=== PATIENT | female | born 1975 | race Caucasian/White ===

== ENCOUNTER → 2016-12-05 | Outpatient (CLI) | payer MEDICAID | LOC: RAD 07:13 | PROVIDERS: ATTEND Family Medicine | DX: M54.12 Radiculopathy, cervical region (principal) | CPT/HCPCS: 72141; 72146 ==

== ENCOUNTER 2018-02-07 19:42 | Emergency (ER) | payer MEDICAID ==
--- NOTE | 2018-02-07 20:32 | ER Document Report ---
ED Medical Screen (RME) - General Chief Complaint: Leg Pain Stated Complaint: RIGHT LEG PAIN Time Seen by Provider: 02/07/18 20:28 Notes: Patient presents with 4 days of increasing numbness tingling warmth she states of her right lower extremity. She states that she has had venous removal in the past but no history of blood clots. Her primary concern for coming to the emergency department is concern for blood clots in her leg. She denies any chest pain or shortness of breath at this time. She also states that she has had lower back problems and this could be contributing to the pain in her leg. She denies any dysuria I have greeted and performed a rapid initial assessment of this patient. A comprehensive ED assessment and evaluation of the patient, analysis of test results and completion of the medical decision making process will be conducted by additional ED providers. PHYSICAL EXAMINATION: GENERAL: Well-appearing, well-nourished and in no acute distress. HEAD: Atraumatic, normocephalic. EYES: Pupils equal round extraocular movements intact, conjunctiva are normal. ENT: Nares patent NECK: Normal range of motion LUNGS: No respiratory distress Musculoskeletal: Normal range of motion, limited exam due to blue jeans NEUROLOGICAL: Normal speech, normal gait. PSYCH: Normal mood, normal affect. SKIN: Warm, Dry, normal turgor, no rashes or lesions noted. TRAVEL OUTSIDE OF THE [place] IN LAST 30 DAYS: No - Related Data Allergies/Adverse Reactions: amoxicillin Allergy (Mild, Verified 06/21/16 22:57) Urticaria Past Medical History - Social History Chew tobacco use (# tins/day): No Frequency of alcohol use: Occasional Drug Abuse: None Renal/ Medical History: Denies: Hx Peritoneal Dialysis Physical Exam - Vital signs Vitals: Temp Pulse Resp BP Pulse Ox 98.2 F 96 16 124/66 98 02/07/18 20:02 02/07/18 20:02 02/07/18 20:02 02/07/18 20:02 02/07/18 20:02 Course - Vital Signs Vital signs: Temp Pulse Resp BP Pulse Ox 98.2 F 96 16 124/66 98 02/07/18 20:02 02/07/18 20:02 02/07/18 20:02 02/07/18 20:02 02/07/18 20:02 Doctor's Discharge - Discharge Referrals: JULISSA VASQUEZ, [Primary Care Provider] - Follow up as needed
--- NOTE | 2018-02-07 22:38 | ER Document Report ---
ED Extremity Problem, Lower - General Chief Complaint: Leg Pain Stated Complaint: RIGHT LEG PAIN Time Seen by Provider: 02/07/18 20:28 Mode of Arrival: Ambulatory Information source: Patient Notes: Patient presents complaining of right lower extremity pain for the past 4 days. Patient states that whenever she stands up she notices that her right lower leg is swollen. Patient complains of tingling and increased warmth sensation to posterior aspect of her right calf. Patient to right foot. Patient states leg feels heavy and tight. Patient does report previous vascular surgery years ago due to enlarged veins to the posterior calf area. Patient denies any chest pain or dyspnea. Patient denies any recent bed rest, immobilization or history of DVT in the past. TRAVEL OUTSIDE OF THE [place] IN LAST 30 DAYS: No - HPI Patient complains to provider of: Pain, Swelling Location: Leg Occurred: Other - four days Onset/Duration: Persistent Quality of pain: Achy Pain Level: 3 Context: denies: Recent immobilization, Recent surgery, Recent travel Recent injury: No Associated symptoms: Painful ambulation. denies: Chest pain, Dizzy, Fever, Hurts to breath Exacerbated by: Walking Relieved by: Nothing - Related Data Allergies/Adverse Reactions: amoxicillin Allergy (Mild, Verified 06/21/16 22:57) Urticaria Past Medical History - General Information source: Patient - Social History Smoking Status: Current Every Day Smoker Chew tobacco use (# tins/day): No Smoking Education Provided: Yes Frequency of alcohol use: Occasional Drug Abuse: None Occupation: clerical Lives with: Family Family History: Reviewed & Not Pertinent Patient has suicidal ideation: No Patient has homicidal ideation: No - Past Medical History Cardiac Medical History: Reports: Other - anemia Renal/ Medical History: Denies: Hx Peritoneal Dialysis Past Surgical History: Reports: Hx Hysterectomy, Hx Vascular Surgery - r leg vascular surgery to remove vein Review of Systems - Review of Systems Constitutional: No symptoms reported. denies: Fever EENT: No symptoms reported Cardiovascular: No symptoms reported. denies: Chest pain, Dyspnea, Dizziness Respiratory: No symptoms reported. denies: Cough, Short of breath Gastrointestinal: No symptoms reported. denies: Vomiting Genitourinary: No symptoms reported Female Genitourinary: No symptoms reported Musculoskeletal: Muscle pain - r calf pain. denies: Back pain Skin: No symptoms reported Hematologic/Lymphatic: No symptoms reported Neurological/Psychological: No symptoms reported Physical Exam - Vital signs Vitals: Temp Pulse Resp BP Pulse Ox 98.2 F 96 16 124/66 98 02/07/18 20:02 02/07/18 20:02 02/07/18 20:02 02/07/18 20:02 02/07/18 20:02 - General General appearance: Appears well, Alert In distress: None - HEENT Head: Normocephalic Eyes: Normal Nasal: Normal Mouth/Lips: Normal Mucous membranes: Normal Neck: Normal, Supple. No: Lymphadenopathy - Respiratory Respiratory status: No respiratory distress Chest status: Nontender Breath sounds: Normal. No: Rales, Rhonchi, Stridor, Wheezing Chest palpation: Normal - Cardiovascular Rhythm: Regular Heart sounds: S1 appreciated, S2 appreciated Murmur: No Pulses: Normal: Dorsalis pedis - Back Back: Normal, Nontender - Extremities General upper extremity: Normal inspection, Normal strength General lower extremity: Normal inspection, Tender - Right calf tenderness, Edema - 1+ edema to right lower extremity, Normal color, Normal ROM, Normal strength, Normal weight bearing Calf: Tender - Right calf, Other - Scars to right calf from previous vein surgery. No: Abrasion, Deformity, Unable to bear weight - Neurological Neuro grossly intact: Yes Cognition: Normal [place] Coma Scale Eye Opening: Spontaneous [place] Coma Scale Verbal: Oriented [place] Coma Scale Motor: Obeys Commands [place] Coma Scale Total: 15 - Psychological Associated symptoms: Normal affect, Normal mood - Skin Skin Temperature: Warm Skin Moisture: Dry Skin Color: Normal Course - Re-evaluation Re-evalutation: 02/07/18 22:33 Preliminary Doppler study with venous congestion, no DVT. Offered patient crutches to help with leg discomfort in gait. Patient declines at this time. Patient does have an appointment with her primary doctor set up. Pt is without any chest discomfort or dyspnea. Patient with good pulses to right lower extremity. - Vital Signs Vital signs: Temp Pulse Resp BP Pulse Ox 98.1 F 64 20 102/54 L 98 02/07/18 23:05 02/07/18 23:05 02/07/18 23:05 02/07/18 23:05 02/07/18 23:05 Discharge - Discharge Clinical Impression: Pain of right lower leg Condition: Stable Disposition: HOME, SELF-CARE Instructions: Leg Pain Nonspecific ([facility]) Additional Instructions: Return immediately for any new or worsening symptoms Followup with your primary care provider, call tomorrow to make a followup appointment Follow-up with a vascular surgeon for further evaluation Prescriptions: Naproxen [Naprosyn 250 Nmg Tablet] 1 tab PO BID #14 tablet Forms: Smoking Cessation Education Referrals: JULISSA VASQUEZ DO [Primary Care Provider] - Follow up as needed TALIB REIS MD [ACTIVE STAFF] - Follow up as needed
[2018-02-07 23:19] VITALS: BP 102/54
--- NOTE | 2018-02-08 09:22 | XCELERA REPORT ---
[address] [address] Lower Extremity Venous Evaluation Name: JD FERGUSON Age: 42 yrs Gender: Female : 1975 Patient Status: Emergency Patient Location: ER Study Date: 02/07/2018 09:44 PM Procedure: Color flow and duplex imaging of the veins of the right lower extremity as well as the left Common Femoral vein. Reason For Study: pain rt leg Ordering Physician: ALLAN ESTRADA Performed By: Wandy Rangel Right Sided Venous Evaluation Venous reflux noted in the Popliteal vein and in the Short Saphenous vein and possible in a shove up. Otherwise normal vessel filling wall to wall, compression and augmentation as well as Colour flow down to the infrageniculate veins. Left Sided Venous Evaluation The left common femoral vein is fully compressible. Spontaneous and phasic flow is present in the left common femoral vein. Interpretation Summary No duplex evidence of DVT or obstruction in the right lower extremity nor in the left Common Femoral vein. Deep and superficial reflux noted in the right lower extremity. A dedicated study for reflux may be useful. : ALLAN ESTRADA > Bud Ramachandran
== END 2018-02-07 23:19 | disposition home or self-care (01) ==
LOC: ER 19:42
DX: M79.604 Pain in right leg (principal); M79.89 Other specified soft tissue disorders; R20.0 Anesthesia of skin; F17.200 Nicotine dependence, unspecified, uncomplicated
CPT/HCPCS: 93971; 99283

== ENCOUNTER → 2018-03-26 | Outpatient (CLI) | payer MEDICAID ==
--- NOTE | 2018-03-28 09:31 | XCELERA REPORT ---
[address] [address] Lower Extremity Arterial Evaluation Name: JD FERGUSON Age: 42 yrs Gender: Female : 1975 Patient Status: Outpatient Patient Location: Study Date: 03/26/2018 11:12 AM Procedure: A color flow and duplex scan of the lower extremity arteries was performed bilaterally with velocity and waveform anaylsis. Ankle brachial indicies performed. Reason For Study: PVD Ordering Physician: TALIB REIS Performed By: Josh Marcos Measurements and Calculations Right Left CLAIM INVESTIGATOR PSV 188.6 187.6 cm/sec Prox PFA PSV -84.9 -96.2 cm/sec Prox SFA PSV -141.4 -130.1 cm/sec Mid SFA PSV -127.3 -115.2 cm/sec Dist SFA PSV -103.7 -107.5 cm/sec Prox Pop A PSV 62.1 57.0 cm/sec Dist BRYON PSV 31.7 77.7 cm/sec Dist ANALYSIS MGR PSV 94.3 90.4 cm/sec Geo Pedis PSV -67.6 -77.7 cm/sec Right Side Arterial Evaluation Normal velocity and triphasic waveforms noted from the Common Femoral artery to the Posterior Tibial . Biphasic with mild diminution in velocity at the Anterior Tibial. 0-19% stenosis at the Anterior Tibial artery. Ankle Brachial index is 1.15. Left Side Arterial Evaluation Normal velocity and triphasic waveforms noted from the Common Femoral artery to the infrageniculate vessels. Biphasic Dorsalis Pedis. 0-19% stenosis at the Dorsalis Pedis. Ankle Brachial index is 1.22. Interpretation Summary Mild hemodynamically significant lesions in the bilateral lower extremities, on duplex imaging, at rest. : TALIB REIS > Talib Reis
== END ==
LOC: SP 10:41
PROVIDERS: ATTEND Surgery
DX: I73.9 Peripheral vascular disease, unspecified (principal)
CPT/HCPCS: 93922; 93925

== ENCOUNTER 2018-09-12 17:53 | Emergency (ER) | payer MEDICAID ==
[2018-09-12] MEDS ORDERED: MAG HYDROX/AL HYDROX/SIMETH SUSP 30 ML UDCUP PO ONE (19:38)
[2018-09-12] MEDS ORDERED: LIDOCAINE 2% VISCOUS SOLN 20 ML UDCUP PO ONE (19:38)
--- NOTE | 2018-09-12 19:43 | RADIOLOGY REPORT (SQ) ---
EXAM DESCRIPTION: CT SOFT TISSUE NECK WITH COMPLETED DATE/TIME: 09/12/2018 7:35 pm REASON FOR STUDY: DYSPHAGIA COMPARISON: None. TECHNIQUE: Post IV contrasted scanning from skull base through lung apices with review of bone, soft tissue and lung windows. Reconstructed coronal and sagittal MPR images reviewed. All images stored on PACS. All CT scanners at this facility use dose modulation, iterative reconstruction, and/or weight based d osing when appropriate to reduce radiation dose to as low as reasonably achievable (ALARA). [facility]: Dose Right [facility]: CareDose [facility]: Dose Right [facility]: Teradose 4D [facility]: [place] CONTRAST TYPE AND DOSE: contrast/concentration: Isovue 350.00 mg/ml; Total Contrast Delivered: 75.0 ml; Total Saline Delivered: 55.0 ml RENAL FUNCTION: None required. The patient is less than 50 years old. RADIATION DOSE: CT Rad equipment meets quality standard of care and radiation dose reduction techniq ues were employed. CTDIvol: 10.2 mGy. DLP: 381 mGy-cm. . LIMITATIONS: None. FINDINGS: SKULL BASE: Intact. MAJOR SALIVARY GLANDS: No solid or cystic masses. No inflammatory changes. LYMPHADENOPATHY: No adenopathy. MUCOSAL MASSES OR ASYMMETRY: No mucosal masses or asymmetry. LARYNX/CORDS: No abnormal findings. VASCULAR STRUCTURES: The major vessels are patent. LUNG APICES: Clear. BONES: Intact. THYROID: Normal size. No masses. PARANASAL SINUSES: Clear. OTHER: No other significant finding. IMPRESSION: NO SIGNIFICANT FINDING IN THE SOFT TISSUES OF THE NECK. TECHNICAL DOCUMENTATION: JOB ID: [id number] Quality ID # [id number]: Final reports with documentation of one or more dose reduction techniques (e.g., Au tomated exposure control, adjustment of the mA and/or kV according to patient size, use of iterative reconstruction technique) 2010 [employer]- All Rights Reserved Reading location - IP/workstation name: [email or web address]
--- NOTE | 2018-09-12 20:13 | ER Document Report ---
ED General - General Chief Complaint: Difficulty Swallowing Stated Complaint: SWALLOWING ISSUE Time Seen by Provider: 09/12/18 18:10 Notes: Patient is a 42-year-old female current everyday smoker, no chronic medical problems who presents with 9-10 days of odynophagia and dysphasia. The patient states that each time she attempts to swallow she feels like something is stuck in her throat but she is able to pass both fluids and food. She describes it as a heaviness or achiness in her throat only present with attempts at swallowing. She states that her symptoms started relatively abruptly approximately 9-10 days ago. She states initially she thought she had swallowed part of her denture. She has not tried anything to improve her symptoms. She denies any difficulty breathing, vomiting or fever. She has not seen her general doctor regarding today's concerns. Nothing is new or different about her symptoms tonight that prompted a visit to the emergency department. TRAVEL OUTSIDE OF THE [place] IN LAST 30 DAYS: No - Related Data Allergies/Adverse Reactions: amoxicillin Allergy (Mild, Verified 06/21/16 22:57) Urticaria Past Medical History - General Information source: Patient - Social History Smoking Status: Current Every Day Smoker Cigarette use (# per day): Yes - 1 pack/day Chew tobacco use (# tins/day): No Smoking Education Provided: Yes - Smoking cessation counseling was provided for 4 minutes at the bedside Frequency of alcohol use: Social Drug Abuse: None Lives with: Family Family History: Reviewed & Not Pertinent Patient has suicidal ideation: No Patient has homicidal ideation: No Renal/ Medical History: Denies: Hx Peritoneal Dialysis Past Surgical History: Reports: Hx Appendectomy, Hx Hysterectomy, Hx Tonsillectomy, Hx Vascular Surgery - r leg vascular surgery to remove vein Review of Systems - Review of Systems Notes: Constitutional: Negative for fever. HENT: Negative for sore throat. Eyes: Negative for visual changes. Cardiovascular: Negative for chest pain. Respiratory: Negative for shortness of breath. Gastrointestinal: Positive for dysphasia and odynophagia Genitourinary: Negative for dysuria. Musculoskeletal: Negative for back pain. Skin: Negative for rash. Neurological: Negative for headaches, weakness or numbness. 10 point ROS negative except as marked above and in HPI. Physical Exam - Vital signs Vitals: Temp Pulse Resp BP Pulse Ox 99.1 F 83 14 147/77 H 97 09/12/18 18:04 09/12/18 18:04 09/12/18 18:04 09/12/18 18:04 09/12/18 18:04 Interpretation: Hypertensive Notes: PHYSICAL EXAMINATION: GENERAL: Well-appearing, well-nourished and in no acute distress. HEAD: Atraumatic, normocephalic. EYES: Pupils equal round and reactive to light, extraocular movements intact, sclera anicteric, conjunctiva are normal. ENT: nares patent, oropharynx clear without exudates. Moist mucous membranes. NECK: Normal range of motion, supple without lymphadenopathy LUNGS: Breath sounds clear to auscultation bilaterally and equal. No wheezes rales or rhonchi. HEART: Regular rate and rhythm without murmurs ABDOMEN: Soft, nontender, normoactive bowel sounds. No guarding, no rebound. No masses appreciated. EXTREMITIES: Normal range of motion, no pitting or edema. No cyanosis. NEUROLOGICAL: No focal neurological deficits. Moves all extremities spontaneously and on command. PSYCH: Normal mood, normal affect. SKIN: Warm, Dry, normal turgor, no rashes or lesions noted. Course - Re-evaluation Re-evalutation: 09/12/18 20:06 Patient presents with odynophagia and dysphasia that has been ongoing for the past 9-10 days. States that the symptoms were relatively abrupt onset. She has no stridor, no wheezing, difficulty actually swallowing or passing fluids or foods. CT of the neck with contrast was obtained in triage for uncertain reasons. This is reviewed, noted to be normal. There is no evidence of retained foreign body. The patient is able to swallow without difficulty at the bedside. I suspect likely an esophagitis versus a lower probability of a small retained foreign body as the patient is able to pass food and fluids without any difficulty. No evidence of tracheal obstruction. I have advised the patient to keep a soft diet, begin famotidine, and follow-up with her primary care doctor for consideration of an outpatient referral for endoscopy. At this time will discharge with return precautions and follow-up recommendations. Verbal discharge instructions given a the bedside and opportunity for questions given. Medication warnings reviewed. Patient is in agreement with this plan and has verbalized understanding of return precautions and the need for primary care follow-up in the next 24-72 hours. - Vital Signs Vital signs: Temp Pulse Resp BP Pulse Ox 99.1 F 83 14 147/77 H 97 09/12/18 18:04 09/12/18 18:04 09/12/18 18:04 09/12/18 18:04 09/12/18 18:04 - Diagnostic Test Radiology reviewed: Image reviewed, Reports reviewed Radiology results interpreted by me: 09/12/18 20:07 CT neck: No evidence of a retained foreign body in the esophagus Discharge - Discharge Clinical Impression: Foreign body sensation in throat, Odynophagia, Tobacco abuse Condition: Good Disposition: HOME, SELF-CARE Additional Instructions: Please begin taking famotidine 40 mg twice daily. This can be purchased directly [id number] but a prescription is also included in your paperwork if you need it. You may wish to crush the pill and place it in pudding or yogurt to help you swallow without difficulty. Your CT scan of the neck is normal today. You likely have inflammation of your esophagus causing you to have the sensation that you are currently experiencing. However, if your symptoms persist despite taking the medication and keeping a soft diet consisting of items such as pudding, yogurt, cottage cheese, mashed potatoes, etc. I would advise that you follow-up with your general doctor for consideration of an endoscopy. Please return to the emergency department if you become unable to swallow, have difficulty breathing, persistent vomiting, develop a fever of greater than 101 F, or have any other symptoms that are worrisome to you. Prescriptions: Famotidine 40 mg PO BID #60 tablet Forms: Smoking Cessation Education Referrals: JULISSA VASQUEZ DO [Primary Care Provider] - Follow up as needed
[2018-09-12 20:20] VITALS: BP 130/78
== END 2018-09-12 20:20 | disposition home or self-care (01) ==
LOC: ER 17:53
DX: R13.10 Dysphagia, unspecified (principal); R09.89 Other specified symptoms and signs involving the circulatory and respiratory systems; F17.210 Nicotine dependence, cigarettes, uncomplicated; Z71.6 Tobacco abuse counseling; Z88.0 Allergy status to penicillin
CPT/HCPCS: 99406; 99284; 70491; J3490 ×2

== ENCOUNTER → 2019-06-10 | Outpatient (CLI) | payer MEDICAID ==
--- NOTE | 2019-06-10 13:52 | RADIOLOGY REPORT (SQ) ---
EXAM DESCRIPTION: T SPINE AP/LAT COMPLETED DATE/TIME: 06/10/2019 12:16 pm REASON FOR STUDY: PAIN IN THORACIC SPINE M54.6 PAIN IN THORACIC SPINE M54.2 CERVICALGIA COMPARISON: None. NUMBER OF VIEWS: Two views. TECHNIQUE: AP and lateral radiographic images acquired of the thoracic spine. LIMITATIONS: None. FINDINGS: MINERALIZATION: Normal. ALIGNMENT: Normal. No scoliosis. VERTEBRAE: No fracture or bone lesion. Maintained height, normal segmentation. DISCS: No significant loss of height or significant narrowing. No large osteophytes. HARDWARE: None in the spine. MEDIASTINUM AND SOFT TISSUES: Normal heart size and aortic contour. No soft tissue abnormality. VISUALIZED LUNG GOLDBERG: Clear. OTHER: No other significant finding. IMPRESSION: NO SIGNIFICANT RADIOGRAPHIC FINDING IN THE THORACIC SPINE. TECHNICAL DOCUMENTATION: JOB ID: [id number] [employer]- All Rights Reserved Reading location - IP/workstation name: [email or web address]
--- NOTE | 2019-06-10 13:53 | RADIOLOGY REPORT (SQ) ---
EXAM DESCRIPTION: C SP 3 VWS OR LESS COMPLETED DATE/TIME: 06/10/2019 12:16 pm REASON FOR STUDY: CERVICALGIA M54.6 PAIN IN THORACIC SPINE M54.2 CERVICALGIA COMPARISON: None. NUMBER OF VIEWS: Three views. TECHNIQUE: AP, lateral and odontoid radiographic images acquired of the cervical spine. LIMITATIONS: None. FINDINGS: MINERALIZATION: Normal. ALIGNMENT: Anatomic. VERTEBRAE: Vertebral bodies of normal height. DISCS: Mild disc space narrowing C5-C6 with associated minimal degenerative spurring anteriorly. HARDWARE: None in the spine. SOFT TISSUES: No masses or calcifications. Lung apices clear. OTHER: No other significant finding. IMPRESSION: Mild spondylotic change C5-C6. TECHNICAL DOCUMENTATION: JOB ID: [id number] Done In :[employer]- All Rights Reserved Reading location - IP/workstation name: [email or web address]
== END ==
LOC: OD 11:50
PROVIDERS: ATTEND Nurse Practitioner Acute Care
DX: M54.6 Pain in thoracic spine (principal); M54.2 Cervicalgia
CPT/HCPCS: 72040; 72070